=== PATIENT | female | born 1950 | race Caucasian/White ===

== ENCOUNTER → 2019-01-07 | Outpatient (CLI) | payer MEDICARE, OTHER ==
--- NOTE | 2019-01-07 16:35 | Diagnostic Imaging Report ---
INDICATION: Left knee pain. FINDINGS: Three views of the left knee show slight narrowing of the medial tibiofemoral joint space. The medial joint space measures 4 mm in thickness whereas the lateral compartment measures 5 mm in thickness. There are small osteophytes at the margins of the articular surfaces. There are small osteophytes at the margins of the patellofemoral joint. IMPRESSION: Mild degenerative changes in the medial, tibiofemoral, and patellofemoral joint spaces. Dictated by: Dictated on workstation # [id number]
== END ==
LOC: RAD FS 15:25
PROVIDERS: ATTEND Nurse Practitioner Family
DX: M17.12 Unilateral primary osteoarthritis, left knee (principal)
CPT/HCPCS: 73562

== ENCOUNTER → 2019-10-06 | Outpatient (CLI) | payer MEDICARE, OTHER ==
--- NOTE | 2019-10-06 11:06 | Diagnostic Imaging Report ---
INDICATION: Back pain AP and lateral views of the lumbar spine are obtained The lumbar vertebrae are normal in height with no compression deformity. There is disc space narrowing of mild to moderate severity at L5-S1, L4-L5, and L3-L4. There is slight retrolisthesis of L3-L4 by about 2 to 3 mm. There is diffuse facet degenerative change from L3 through S1. IMPRESSION: Degenerative findings in the lumbar spine as listed above. Slight retrolisthesis of L3-L4. No acute bony abnormality. Dictated by: Dictated on workstation # [id number]
== END ==
LOC: RAD FS 10:45
PROVIDERS: ATTEND Nurse Practitioner Family
DX: M51.17 Intervertebral disc disorders with radiculopathy, lumbosacral region (principal); M47.817 Spondylosis without myelopathy or radiculopathy, lumbosacral region
CPT/HCPCS: 72100

== ENCOUNTER 2020-05-15 15:12 | Emergency (ER) | payer MEDICARE, OTHER ==
[~2020-05-15] VITALS: Ht 154.9 cm; Wt 98.4 kg
[2020-05-15 15:51] LABS: HEMATOCRIT 31 % (35-52); HEMOGLOBIN 10.2 G/DL (11.5-16.0); MEAN CORPUSCULAR HEMOGLOBIN 27 PG (25-34); MEAN CORPUSCULAR VOLUME 82 FL (80-99); WHITE BLOOD COUNT 8.7 10^3/uL (4.3-11.0)
[2020-05-15 15:52] LABS: BASOPHILS % (AUTO) 1 % (0-10); EOSINOPHILS # (AUTO) 0.1 10^3/uL (0.0-0.3); EOSINOPHILS % (AUTO) 2 % (0-10); LYMPHOCYTES # (AUTO) 0.8 X 10^3 (1.0-4.0); LYMPHOCYTES % (AUTO) 9 % (12-44); MEAN CORPUSCULAR HGB CONC 33 G/DL (32-36); MEAN PLATELET VOLUME 9.3 FL (7.4-10.4); MONOCYTES # (AUTO) 0.6 X 10^3 (0.0-1.0); MONOCYTES % (AUTO) 7 % (0-12); NEUTROPHILS % (AUTO) 80 % (42-75); PLATELET COUNT 386 10^3/uL (130-400)
--- NOTE | 2020-05-15 16:17 | Diagnostic Imaging Report ---
EXAMINATION: Left knee radiographs, 2 views. COMPARISON: January 07, 2019. HISTORY: 69-year-old female, swelling and redness. FINDINGS: There is a total left knee prosthesis. The hardware appears intact. There is no periprosthetic lucency. There is no cortical or aggressive bone destruction. There is no identified acute fracture. There is no large knee joint effusion. There is no identified unexpected radiopaque foreign body. IMPRESSION: Intact total left knee prosthesis without apparent complication. Dictated by: Dictated on workstation # [id number]
[2020-05-15 16:20] LABS: ALANINE AMINOTRANSFERASE 11 U/L (0-55); ALBUMIN 3.6 GM/DL (3.2-4.5); ALKALINE PHOSPHATASE 106 U/L (40-136); BUN/CREATININE RATIO 30; CALCIUM 9.2 MG/DL (8.5-10.1); CARBON DIOXIDE 25 MMOL/L (21-32); CHLORIDE 100 MMOL/L (98-107); GFR ESTIMATED > 60; GLUCOSE 177 MG/DL (70-105); SODIUM 137 MMOL/L (135-145); TOTAL PROTEIN 6.5 GM/DL (6.4-8.2)
[2020-05-15 17:25] VITALS: BP 144/61
[2020-05-15] MEDS ORDERED: ENOXAPARIN 80 MG/0.8 ML (LOVENOX) SYR SC ONE (17:30)
--- NOTE | 2020-05-16 07:03 | ED General ---
General Chief Complaint: Lower Extremity Stated Complaint: LEFT LEG SWOLLEN,HOT TO TOUCH: SURGERY ON 05/09 Nursing Triage Note: PT ARRIVED BY PRIVATE VEHICLE WITH CHIEF COMPLAINT OF LEFT KNEE/LEG SWELLING. PT WAS ALERT, ORIENTED X 4 AND WHEELED TO ROOM 4 WHERE HER VITAL SIGNS WERE TAKEN. DOPPLER WAS USED TO FIND DORSALIS PEDIS AND POSTERIOR TIBIALIS. PT HAD SURGERY AT [facility] STATES ON 05/09 AND LEFT ON 05/12. PT HAD LAST DRESSING CHANGE ON 05/10. THERE IS A DRAINAGE SPOT ON HER DRESSING. PT HAS SEVERE SWELLING IN LEFT LEG AND BRUISING. PT STATED SHE TAKES A BABY ASPIRIN 81 MG A DAY AND OXYCODONE EVERY 4 HOURS FOR PAIN. PT HAS BEEN TRYING TO WALK ON LEG AND GET UP AND DOWN, BUT IN A LOT OF PAIN. PT IS SUPPOSED TO DO PHYSICIAL THERAPY ON SATURDAY. PT STATED IT IS WARM TO THE TOUCH. PT STATED SHE DOES NOT LIKE HYDROCODENE. Nursing Sepsis Screen: No Definite Risk Source of Information: Patient Exam Limitations: No Limitations History of Present Illness Date Seen by Provider: May 16, 2020 Time Seen by Provider: 17:30 Initial Comments Patient is a 69-year-old female who is 6 days status post left knee replacement presents with increased left leg pain swelling left knee. Patient reports increased pain with ambulation and movement. Denies falls or injuries. No fevers chills, nausea vomiting or sweats. Denies increased drainage from bandage. Patient states she was walking on the leg for 3 hours last evening prior to leg hurting today. No chest pain shortness of breath. No other symptoms or complaints. Patient is not currently anticoagulated. Timing/Duration: 12-24 Hours Severity: Moderate Modifying Factors: improves with Movement Associated Systoms: Other Allergies and Home Medications Allergies Coded Allergies: hydrocodone (Verified Allergy, Unknown, 05/15/20) Patient Home Medication List Home Medication List Reviewed: Yes Review of Systems Review of Systems Constitutional: see HPI EENTM: see HPI Respiratory: see HPI Cardiovascular: see HPI Gastrointestinal: see HPI Genitourinary: see HPI Musculoskeletal: see HPI Skin: see HPI Psychiatric/Neurological: See HPI Hematologic/Lymphatic: See HPI Immunological/Allergic: see HPI All Other Systems Reviewed Negative Unless Noted: Yes Past Ndfbuhd-Amaxlo-Iiqbqs Hx Past Med/Social Hx: Reviewed Nursing Past Med/Soc Hx Patient Social History Recent Foreign Travel: No Contact w/Someone Who Travel: No Recent Infectious Disease Expo: No Recent Hopitalizations: Yes (LEFT KNEE REPLACEMENT) Physical Abuse: No Sexual Abuse: No Mistreated: No Fear: No Seasonal Allergies Seasonal Allergies: No Past Medical History Surgeries: Yes (BILATERAL KNEE REPLACEMENT) Adenoidectomy, Gallbladder, Joint Replacement, Tonsillectomy Respiratory: No Cardiac: Yes Hypertension Neurological: No Genitourinary: No Gastrointestinal: No Musculoskeletal: Yes (OSTEOARTHRITIS, BILAT KNEE REPLACMENT) Arthritis Endocrine: No (ON BOARDER FOR DM) HEENT: No Cancer: No Psychosocial: No Blood Disorders: No Physical Exam Vital Signs Vital Signs - First Documented 05/15/20 15:20 Temp 37.2 Pulse 100 Resp 20 B/P (MAP) 150/77 (101) Pulse Ox 98 O2 Delivery Room Air Capillary Refill : Less Than 3 Seconds Height, Weight, BMI Height: '" Weight: lbs. oz. kg; 41.00 BMI Method: General Appearance: Anxious, Mild Distress Eyes: Bilateral Eye Normal Inspection HEENT: PERRL/EOMI, Pharynx Normal Neck: Full Range of Motion, Normal Inspection, Non Tender Extremity: Swelling (midline incision left leg/knee, wound clean dry and intact. The joint is not hot or is excessively painful with range of motion. Extensive old bruising for a anterior leg. Pulses present. Calf does not feel tense), Other Neurologic/Psychiatric: Oriented x3, No Motor/Sensory Deficits Focused Exam Sepsis Stage: Ruled Out Progress/Results/Core Measures Suspected Sepsis Recent Fever Within 48 Hours: No Infection Criteria Present: Suspected New Infection New/Unexplained Altered Menta: No Sepsis Screen: No Definite Risk SIRS Temperature: Pulse: 92 Respiratory Rate: 18 Laboratory Tests 05/15/20 15:40: White Blood Count 8.7 Blood Pressure 144 /61 Mean: 101 Laboratory Tests 05/15/20 15:40: Creatinine 0.50L, Platelet Count 386, Total Bilirubin 1.0 Results/Orders Lab Results Laboratory Tests Test 05/15/20 15:40 Range/Units White Blood Count 8.7 4.3-11.0 10^3/uL Red Blood Count 3.78 L 4.35-5.85 10^6/uL Hemoglobin 10.2 L 11.5-16.0 G/DL Hematocrit 31 L 35-52 % Mean Corpuscular Volume 82 80-99 FL Mean Corpuscular Hemoglobin 27 25-34 PG Mean Corpuscular Hemoglobin Concent 33 32-36 G/DL Red Cell Distribution Width 14.1 10.0-14.5 % Platelet Count 386 130-400 10^3/uL Mean Platelet Volume 9.3 7.4-10.4 FL Immature Granulocyte % (Auto) 2 % Neutrophils (%) (Auto) 80 H 42-75 % Lymphocytes (%) (Auto) 9 L 12-44 % Monocytes (%) (Auto) 7 0-12 % Eosinophils (%) (Auto) 2 0-10 % Basophils (%) (Auto) 1 0-10 % Neutrophils # (Auto) 7.0 1.8-7.8 X 10^3 Lymphocytes # (Auto) 0.8 L 1.0-4.0 X 10^3 Monocytes # (Auto) 0.6 0.0-1.0 X 10^3 Eosinophils # (Auto) 0.1 0.0-0.3 10^3/uL Basophils # (Auto) 0.0 0.0-0.1 10^3/uL Immature Granulocyte # (Auto) 0.1 0.0-0.1 10^3/uL Sodium Level 137 135-145 MMOL/L Potassium Level 4.0 3.6-5.0 MMOL/L Chloride Level 100 98-107 MMOL/L Carbon Dioxide Level 25 21-32 MMOL/L Anion Gap 12 5-14 MMOL/L Blood Urea Nitrogen 15 7-18 MG/DL Creatinine 0.50 L 0.60-1.30 MG/DL Estimat Glomerular Filtration Rate > 60 BUN/Creatinine Ratio 30 Glucose Level 177 H 70-105 MG/DL Calcium Level 9.2 8.5-10.1 MG/DL Corrected Calcium 9.5 8.5-10.1 MG/DL Total Bilirubin 1.0 0.1-1.0 MG/DL Aspartate Amino Transf (AST/SGOT) 11 5-34 U/L Alanine Aminotransferase (ALT/SGPT) 11 0-55 U/L Alkaline Phosphatase 106 40-136 U/L C-Reactive Protein 8.39 H <0.50 MG/DL Total Protein 6.5 6.4-8.2 GM/DL Albumin 3.6 3.2-4.5 GM/DL Nanci Sullivan - KARLO BRUCE DO Cbc With Automated Diff (12/27/20 15:34) Comprehensive Metabolic Panel (05/15/20 15:34) Crp Fs (05/15/20 15:34) Knee 2 View Left (05/15/20 15:37) Enoxaparin Injection (Lovenox Injection) (05/15/20 17:30) Vital Signs/I&O Capillary Refill : Less Than 3 Seconds Blood Pressure Mean: 101 Departure Communication (Admissions) Left knee: Soft tissue swelling only. Labyrinthine imaging reviewed. Symptoms most consistent with increased pain and swelling secondary to aggressive use. Infection considered but not clinically evident at this point. Arthrocentesis not currently indicated. Case reviewed with orthopedic provider who will see in clinic in 2 days. Lovenox given with order for CV ultrasound to performed next day. Return precautions reviewed. Impression Primary Impression: Postoperative pain of extremity Disposition: 01 HOME, SELF-CARE Condition: Stable Departure-Patient Inst. Decision time for Depature: 17:15 Add. Discharge Instructions: Please follow up with [facility] tomorrow to arrange for outpatient US of leg and cotnact your orthopaeidic provider for re-evaluation in the next one two days. All discharge instructions reviewed with patient and/or family. Voiced understanding. KARLO BRUCE DO May 16, 2020 07:03
== END 2020-05-15 17:25 | disposition home or self-care (01) ==
LOC: EDUNIT# 15:12 → ER FS 15:14
DX: G89.18 Other acute postprocedural pain (principal); F41.9 Anxiety disorder, unspecified; Z88.5 Allergy status to narcotic agent
CPT/HCPCS: 36415; 73560; 80053; 85025; 86141

== ENCOUNTER → 2021-01-09 | Outpatient (CLI) | payer MEDICARE, OTHER ==
[~2021-01-09] VITALS: Ht 154 cm; Wt 220.0 kg
[~2021-01-09] MED LIST: ACETAMINOPHEN 500 MG TAB (TYLENOL) PO PRN; CASIRIVIMAB/IMDEVIMAB 1,200 MG in NS (IVPB) 250 ML IV ONE; EPINEPHrine INJECTION 1 MG/ML AMP IM PRN; ONDANSETRON 4 MG/2 ML (SDV) Z0FRAN IV PRN; diphenhydrAMINE 50 MG/ML INJ (BENADRYL) IV PRN
[2021-01-09 12:17] VITALS: BP 147/57
[2021-01-09 13:46] VITALS: BP 139/65
== END ==
LOC: INFUSION 12:08
PROVIDERS: ATTEND Nurse Practitioner Family
DX: Z23 Encounter for immunization (principal); U07.1 COVID-19

== ENCOUNTER → 2021-08-01 | Outpatient (CLI) | payer MEDICARE, OTHER ==
--- NOTE | 2021-08-01 20:00 | Diagnostic Imaging Report ---
HISTORY: Pain in the right hip. EXAMINATION: Right hip from 08/01/2021. FINDINGS: Single view of the pelvis with two views of the right hip. There is a small linear density adjacent to the superolateral aspect of the right acetabulum which could represent an os acetabuli. A small fracture fragment is less likely but not excluded. The remaining osseous structures are intact. Mild narrowing is seen in both hips. IMPRESSION: 1. Age-indeterminate density adjacent to the superolateral right acetabulum. Correlate with symptoms. Dictated by: Dictated on workstation # [id number]
== END ==
LOC: RAD FS 14:27
PROVIDERS: ATTEND Nurse Practitioner Family
DX: M25.851 Other specified joint disorders, right hip (principal)
CPT/HCPCS: 73502

== ENCOUNTER 2021-08-13 21:00 | Emergency (ER) | payer MEDICARE, OTHER ==
--- NOTE | 2021-08-13 21:43 | ED General ---
General Chief Complaint: Trauma-Non Activation Stated Complaint: HEAD INJURY Nursing Triage Note: Pt states she was carrying groceries up her steps and fell backward, hitting her head on the concrete. Pt denies loc and is alert and oriented on arrival History of Present Illness Date Seen by Provider: Aug 13, 2021 Time Seen by Provider: 21:15 Initial Comments 70-year-old female is here with complaints of swelling to her scalp after she had a fall today. Patient had a fall backwards off her front porch steps, 2 in number. She hit the back of her head on the ground but did not have LOC. Patient was carrying a water jug to her porch and the jug fell towards her causing her to fall backwards. Denies dizziness, headache, blurry vision, chest pain, palpitations. Allergies and Home Medications Allergies Coded Allergies: hydrocodone (Verified Allergy, Unknown, 05/15/20) Patient Home Medication List Home Medication List Reviewed: Yes Review of Systems Review of Systems Constitutional: no symptoms reported EENTM: other (scalp swelling) Respiratory: no symptoms reported Cardiovascular: no symptoms reported Gastrointestinal: no symptoms reported Genitourinary: no symptoms reported Musculoskeletal: no symptoms reported Skin: no symptoms reported Psychiatric/Neurological: No Symptoms Reported Hematologic/Lymphatic: No Symptoms Reported Immunological/Allergic: no symptoms reported Past Zvfdpme-Bbxbql-Jbffjn Hx Patient Social History Tobacco Use?: No Use of E-Cig and/or Vaping dev: No Substance use?: No Alcohol Use?: No Pt feels they are or have been: No Seasonal Allergies Seasonal Allergies: No Past Medical History Surgeries: Yes (BILATERAL KNEE REPLACEMENT) Adenoidectomy, Gallbladder, Joint Replacement, Tonsillectomy Respiratory: No Cardiac: Yes Hypertension Neurological: No Genitourinary: No Gastrointestinal: No Musculoskeletal: Yes (OSTEOARTHRITIS, BILAT KNEE REPLACMENT) Arthritis Endocrine: No (ON BOARDER FOR DM) HEENT: No Cancer: No Psychosocial: No Blood Disorders: No Physical Exam Vital Signs Vital Signs - First Documented 08/13/21 21:06 Temp 36.7 Pulse 80 Resp 18 B/P (MAP) 168/119 (135) Pulse Ox 96 O2 Delivery Room Air Capillary Refill : Less Than 3 Seconds Height, Weight, BMI Height: '" Weight: lbs. oz. kg; 41.00 BMI Method: General Appearance: No Apparent Distress HEENT: PERRL/EOMI, TMs Normal Neck: Full Range of Motion, Normal Inspection, Non Tender, Supple Extremity: Normal Inspection, Normal Range of Motion, Non Tender Neurologic/Psychiatric: Alert, Oriented x3, No Motor/Sensory Deficits, Normal Mood/Affect, touch up worker II-XII Norm as Tested Skin: Normal Color Progress/Results/Core Measures Suspected Sepsis SIRS Temperature: Pulse: 80 Respiratory Rate: 18 Blood Pressure 168 /119 Mean: 135 Results/Orders My Orders Orders - BELEN SUNSHINE MD Ct Head/Cervical Spine Wo (08/13/21 21:11) Vital Signs/I&O 08/13/21 21:06 Temp 36.7 Pulse 80 Resp 18 B/P (MAP) 168/119 (135) Pulse Ox 96 O2 Delivery Room Air Capillary Refill : Less Than 3 Seconds Blood Pressure Mean: 135 Progress Note : Progress Note 1. LEFT PARIETAL SCALP HEMATOMA: - CT HEAD & C-SPINE: left parietal scalp hematoma - F/u with PCP - Concussion precautions discussed. No concussion at this time. -The patient was seen in the ED, and treated appropriately to presentation at a specific point in time. Patient is informed that there is a possibility that disease and illness can evolve and change in acuity rapidly or slowly after patient is discharged from the ER. Precautionary advice given to the patient for immediate return to ER if symptoms worsen or do not resolve, and to seek emergen cy care sooner rather than later. Pt also advised on the importance of PCP follow up and compliance with management and follow up plan. Pt verbally expressed understanding. Diagnostic Imaging Diagonstic Imaging: CT Plain Films/CT/US/NM/MRI: c-spine, head Comments [facility], [place] NAME: STELLA VILLAGRAN [facility] REC#: [id number] PT STATUS: REG ER : 1950 PHYSICIAN: BELEN SUNSHINE MD ADMIT DATE: 08/13/21/ER FS Signed Date of Exam:08/13/21 CT HEAD/CERVICAL SPINE WO PROCEDURE: CT head and CT cervical spine without contrast. TECHNIQUE: Multiple contiguous axial images were obtained through the brain and cervical spine without the use of intravenous contrast. Sagittal and coronal reformations through the cervical spine were then performed. Auto Exposure Controls were utilized during the CT exam to meet ALARA standards for radiation dose reduction. INDICATION: Fall. Head and neck pain. COMPARISON: None. FINDINGS: CT HEAD: No large acute territorial ischemia, mass or hemorrhage. No midline shift or mass effect. Scattered areas of decreased attenuation are seen in the periventricular and subcortical white matter. The ventricles, cortical sulci and basilar cisterns are patent and unremarkable. A scalp contusion is seen overlying the left parietal region. The calvarium is intact. The visualized paranasal sinuses are clear. CT CERVICAL SPINE: No acute fracture or dislocation is seen in the cervical spine. There is reversal of the normal lordotic curvature of the cervical spine centered at the C5-C6 level. No focal osseous lesion. Vertebral body heights are well maintained. The craniocervical junction is well maintained. Mild degenerative changes are seen in the cervical spine with disc osteophyte complexes and uncovertebral arthropathy. Soft tissues of the neck are unremarkable. The included lung apices are clear. IMPRESSION: 1. No hemorrhage or focal intra-axial mass. No CT evidence of large acute territorial ischemia. 2. No acute fracture or dislocation in the cervical spine. 3. Scalp contusion overlying the left parietal region. No associated calvarial fracture. 4. Scattered chronic microvascular disease in the periventricular and subcortical white matter. Departure Impression Primary Impression: Left parietal scalp hematoma Qualified Codes: S00.03XA - Contusion of scalp, initial encounter Disposition: 01 HOME, SELF-CARE Condition: Stable Departure-Patient Inst. Referrals: TEMI JERONIMO APRN (PCP) Primary Care Physician [facility] (Family) Primary Care Physician Patient Instructions: Contusion (DC), Concussion, Adult (DC) Add. Discharge Instructions: - F/u with PCP - Concussion precautions discussed. No concussion at this time. -The patient was seen in the ED, and treated appropriately to presentation at a specific point in time. Patient is informed that there is a possibility that disease and illness can evolve and change in acuity rapidly or slowly after patient is discharged from the ER. Precautionary advice given to the patient for immediate return to ER if symptoms worsen or do not resolve, and to seek emergency care sooner rather than later. Pt also advised on the importance of PCP follow up and compliance with management and follow up plan. Pt verbally expressed understanding. All discharge instructions reviewed with patient and/or family. Voiced understanding. BELEN SUNSHINE MD Aug 13, 2021 21:43
--- NOTE | 2021-08-13 21:47 | Diagnostic Imaging Report ---
PROCEDURE: CT head and CT cervical spine without contrast. TECHNIQUE: Multiple contiguous axial images were obtained through the brain and cervical spine without the use of intravenous contrast. Sagittal and coronal reformations through the cervical spine were then performed. Auto Exposure Controls were utilized during the CT exam to meet ALARA standards for radiation dose reduction. INDICATION: Fall. Head and neck pain. COMPARISON: None. FINDINGS: CT HEAD: No large acute territorial ischemia, mass or hemorrhage. No midline shift or mass effect. Scattered areas of decreased attenuation are seen in the periventricular and subcortical white matter. The ventricles, cortical sulci and basilar cisterns are patent and unremarkable. A scalp contusion is seen overlying the left parietal region. The calvarium is intact. The visualized paranasal sinuses are clear. CT CERVICAL SPINE: No acute fracture or dislocation is seen in the cervical spine. There is reversal of the normal lordotic curvature of the cervical spine centered at the C5-C6 level. No focal osseous lesion. Vertebral body heights are well maintained. The craniocervical junction is well maintained. Mild degenerative changes are seen in the cervical spine with disc osteophyte complexes and uncovertebral arthropathy. Soft tissues of the neck are unremarkable. The included lung apices are clear. IMPRESSION: 1. No hemorrhage or focal intra-axial mass. No CT evidence of large acute territorial ischemia. 2. No acute fracture or dislocation in the cervical spine. 3. Scalp contusion overlying the left parietal region. No associated calvarial fracture. 4. Scattered chronic microvascular disease in the periventricular and subcortical white matter. Dictated by: Dictated on workstation # [id number]
[2021-08-13 22:22] VITALS: BP 162/95
== END 2021-08-13 22:25 | disposition home or self-care (01) ==
LOC: EDUNIT# 21:00 → ER FS 21:03
DX: S00.03XA Contusion of scalp, initial encounter (principal); W22.8XXA Striking against or struck by other objects, initial encounter
CPT/HCPCS: 70450; 72125

== ENCOUNTER 2021-11-13 11:55 | Emergency (ER) | payer MEDICARE, OTHER ==
[~2021-11-13] VITALS: Ht 175 cm; Wt 63.0 kg
[2021-11-13 12:32] VITALS: BP 131/72
--- NOTE | 2021-11-13 13:11 | ED Respiratory ---
General Chief Complaint: COVID19 Suspect/Confirmed Stated Complaint: COVID POSITIVE Nursing Triage Note: Patient has presented to ER with cc of a positive home Covid test. Patient reports that she started to feel sick yesterday. She complains of cough, congestion, and body aches. She is concerned about the positive test and came to ER for evaluation. History of Present Illness Date Seen by Provider: Nov 13, 2021 Time Seen by Provider: 12:56 Initial Comments 70-year-old female here with complaints of positive COVID home test. Son is in the room and had the same thing. She is here to get further tested. Having some cough shortness of breath. No fever or chills. Symptoms started yesterday Timing/Duration: yesterday Allergies and Home Medications Allergies Coded Allergies: hydrocodone (Verified Allergy, Unknown, 05/15/20) Patient Home Medication List Home Medication List Reviewed: Yes Molnupiravir (Molnupiravir (Eua)) 200 Mg Capsule, 800 MG PO BID Prescribed by: Ke Rodriguez on 11/13/21 1620 Review of Systems Review of Systems Constitutional: see HPI Past Mxenteh-Ndjalt-Wrazla Hx Patient Social History Tobacco Use?: No Use of E-Cig and/or Vaping dev: No Substance use?: No Alcohol Use?: No Seasonal Allergies Seasonal Allergies: No Past Medical History Surgeries: Yes (BILATERAL KNEE REPLACEMENT) Adenoidectomy, Gallbladder, Joint Replacement, Tonsillectomy Respiratory: No Cardiac: Yes Hypertension Neurological: No Genitourinary: No Gastrointestinal: No Musculoskeletal: Yes (OSTEOARTHRITIS, BILAT KNEE REPLACMENT) Arthritis Endocrine: No (ON BOARDER FOR DM) HEENT: No Cancer: No Psychosocial: No Blood Disorders: No Physical Exam Vital Signs - First Documented 11/13/21 12:32 Temp 36.4 Pulse 60 Resp 16 B/P (MAP) 131/72 (91) Pulse Ox 98 O2 Delivery Room Air Capillary Refill : Height: '" Weight: lbs. oz. kg; 20.00 BMI Method: General Appearance: WD/WN, no apparent distress HEENT: PERRL/EOMI, pharynx normal Neck: full range of motion, supple Respiratory: lungs clear, normal breath sounds; No crackles, No rales, No rhonchi Cardiovascular: regular rate, rhythm, no edema Neurologic/Psychiatric: alert, normal mood/affect Progress/Results/Core Measures Suspected Sepsis SIRS Temperature: Pulse: 60 Respiratory Rate: 16 Blood Pressure 131 /72 Mean: 91 Results/Orders Lab Results Laboratory Tests Test 11/13/21 13:05 Range/Units Influenza Type A (RT-PCR) Not Detected Not Detecte Influenza Type B (RT-PCR) Not Detected Not Detecte SARS-CoV-2 RNA (RT-PCR) Detected H Not Detecte My Orders Orders - KE RODRIGUEZ MD Covid 19 Inhouse Test (11/13/21 13:01) Influenza A And B By Pcr (11/13/21 13:01) Isolation Central Supply Req (11/13/21 13:01) Vital Signs/I&O 11/13/21 12:32 Temp 36.4 Pulse 60 Resp 16 B/P (MAP) 131/72 (91) Pulse Ox 98 O2 Delivery Room Air Capillary Refill : Blood Pressure Mean: 91 Departure Impression Primary Impression: COVID-19 Disposition: 01 HOME, SELF-CARE Condition: Stable Departure-Patient Inst. Referrals: TEMI JERONIMO APRN (PCP) Primary Care Physician [facility] (Family) Primary Care Physician Patient Instructions: COVID-19 Home Care/Discharge Scripts Molnupiravir (Molnupiravir (Eua)) 200 Mg Capsule 800 MG PO BID for 5 Days, #40 CAP 0 Refills Prov: KE RODRIGUEZ MD 11/13/21 KE RODRIGUEZ MD Nov 13, 2021 13:11
[2021-11-13] MEDS ORDERED: MOLN200C PO (16:20)
== END 2021-11-13 17:23 | disposition home or self-care (01) ==
LOC: EDUNIT# 11:55 → ER FS 11:58
DX: U07.1 COVID-19 (principal)
CPT/HCPCS: 87636; 99283

== ENCOUNTER 2021-11-24 16:49 | Emergency (ER) | payer MEDICARE, OTHER ==
[~2021-11-24] VITALS: Ht 152.4 cm; Wt 63.0 kg
[~2021-11-24 16:49] MED LIST changes: -ACETAMINOPHEN 500 MG TAB (TYLENOL) PO PRN; -CASIRIVIMAB/IMDEVIMAB 1,200 MG in NS (IVPB) 250 ML IV ONE; -EPINEPHrine INJECTION 1 MG/ML AMP IM PRN; +MOLN200C PO; -ONDANSETRON 4 MG/2 ML (SDV) Z0FRAN IV PRN; -diphenhydrAMINE 50 MG/ML INJ (BENADRYL) IV PRN
--- NOTE | 2021-11-24 17:25 | ED Cough/URI ---
General Chief Complaint: Cough/Cold/Flu Symptoms Stated Complaint: COUGH Nursing Triage Note: Patient presents to the ED with c/o persistent cough. States that she was COVID + 11/13/2021 and finished antiviral medication 11/18/2021. Reports persistent productive cough with no improvement since finishing antiviral medication. Was seen at urgent care and sent to the ED for further evaluation. Source: patient Exam Limitations: no limitations History of Present Illness Date Seen by Provider: Nov 24, 2021 Time Seen by Provider: 17:00 Initial Comments Patient is a 70-year-old female who is 2 weeks post COVID diagnosis who presents with persistent nasal congestion rhinorrhea postnasal drip and cough. No chest pain palpitations, shortness of breath wheezing, leg pain or swelling. No history DVT or PE. No fever chills or sweats. Patient was seen at [facility] with O2 sats greater than 94% referred to the ED for additional evaluation. Timing/Duration: yesterday Severity/Quality: other Prior Episodes/Possible Cause: other Modifying Factors: Improves With Other Associated Symptoms: other Allergies and Home Medications Allergies Coded Allergies: hydrocodone (Verified Allergy, Unknown, 05/15/20) Patient Home Medication List Home Medication List Reviewed: Yes Molnupiravir (Molnupiravir (Eua)) 200 Mg Capsule, 800 MG PO BID Prescribed by: Cate Rodriguez on 11/13/21 1620 Review of Systems Review of Systems Constitutional: see HPI EENTM: see HPI Respiratory: see HPI Cardiovascular: see HPI Gastrointestinal: see HPI Musculoskeletal: see HPI Skin: see HPI Psychiatric/Neurological: See HPI Hematologic/Lymphatic: See HPI Immunological/Allergic: see HPI All Other Systems Reviewed Negative Unless Noted: Yes Past Sjbflke-Ogudnc-Szvbsl Hx Patient Social History Tobacco Use?: No Substance use?: No Alcohol Use?: No Pt feels they are or have been: No Immunizations Up To Date First/Initial COVID19 Vaccinat: Yes Second COVID19 Vaccination Calderon: Yes 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: [employer] Seasonal Allergies Seasonal Allergies: No Past Medical History Surgery/Hospitalization HX: HTN; High Cholesterol; Recent COVID 11/13/2021; Hysterectomy; Parkinson; Chronic joint pain; Asthma Surgeries: Yes (BILATERAL KNEE REPLACEMENT) Adenoidectomy, Gallbladder, Joint Replacement, Tonsillectomy Respiratory: No Cardiac: Yes Hypertension Neurological: No Genitourinary: No Gastrointestinal: No Musculoskeletal: Yes (OSTEOARTHRITIS, BILAT KNEE REPLACMENT) Arthritis Endocrine: No (ON BOARDER FOR DM) HEENT: No Cancer: No Psychosocial: No Blood Disorders: No Physical Exam Vital Signs - First Documented 11/24/21 16:54 Temp 37.0 Pulse 71 Resp 20 B/P (MAP) 176/77 (110) Pulse Ox 95 O2 Delivery Room Air Capillary Refill : Less Than 3 Seconds Height: '" Weight: lbs. oz. kg; 27.00 BMI Method: General Appearance: WD/WN, no apparent distress Eyes: Bilateral Eye Normal Inspection, Bilateral Eye PERRL HEENT: PERRL/EOMI, normal ENT inspection, other (rhinorrhea, nasal congestion) Neck: full range of motion Respiratory: chest non-tender, lungs clear, normal breath sounds Cardiovascular: normal peripheral pulses, regular rate, rhythm Extremities: non-tender, normal inspection Neurologic/Psychiatric: alert, oriented x 3 Focused Exam Sepsis Stage: Ruled Out Progress/Results/Core Measures Suspected Sepsis SIRS Temperature: Pulse: 71 Respiratory Rate: 20 Blood Pressure 176 /77 Mean: 110 Results/Orders Vital Signs/I&O 11/24/21 16:54 Temp 37.0 Pulse 71 Resp 20 B/P (MAP) 176/77 (110) Pulse Ox 95 O2 Delivery Room Air Capillary Refill : Less Than 3 Seconds Blood Pressure Mean: 110 Departure Communication (Admissions) Patient with cough related symptoms. Vital signs are stable with O2 sats greater than 97%. No chest pain, shortness of breath wheezing or constitutional symptoms. I am comfortable treating the patient clinically with PCP follow-up.. Impression Primary Impression: Acute bronchitis due to 2019 novel coronavirus Disposition: HOME, SELF-CARE Condition: Stable Admissions Decision to Admit/Date: Nov 24, 2021 Time/Decision to Admit Time: 17:25 Departure-Patient Inst. Decision time for Depature: 17:25 Referrals: TEMI JERONIMO APRN (PCP) Primary Care Physician [facility] (Family) Primary Care Physician Patient Instructions: Acute Bronchitis Add. Discharge Instructions: Your symptoms are consistent with acute bronchitis due to COVID virus. Please take newly prescribed medication as directed follow-up with your PCP as needed. Return to the ED if new or worsening symptoms. All discharge instructions reviewed with patient and/or family. Voiced understanding. Scripts Benzonatate (TESSALON PERLES) 100 Mg Capsule 200 MG PO BID, #30 CAP Prov: KARLO BRUCE DO 11/24/21 Albuterol Sulfate (Proventil Hfa) 6.7 Gm Hfa.aer.ad 2 PUFF INH Q6H for SHORTNESS OF BREATH, #1 EACH Prov: KARLO BRUCE DO 11/24/21 Guaifenesin (Mucinex) 1,200 Mg Tab.er.12h 1200 MG PO BID, #30 TAB Prov: KARLO BRUCE DO 11/24/21 KARLO BRUCE DO Nov 24, 2021 17:25
[2021-11-24] MEDS ORDERED: BENZ100C18 PO (17:28)
[2021-11-24] MEDS ORDERED: RT-ALBUINH INH (17:28)
[2021-11-24] MEDS ORDERED: GUAI120013 PO (17:28)
[2021-11-24 17:30] VITALS: BP 166/79
== END 2021-11-24 17:30 | disposition home or self-care (01) ==
LOC: EDUNIT# 16:49 → ER FS 16:50
DX: U07.1 COVID-19 (principal); J20.8 Acute bronchitis due to other specified organisms; Z73.0 Burn-out
CPT/HCPCS: 99282

== ENCOUNTER → 2022-01-25 | Outpatient (CLI) | payer MEDICARE, OTHER ==
[~2022-01-25] MED LIST changes: +BENZ100C18 PO; +GUAI120013 PO; +RT-ALBUINH INH
--- NOTE | 2022-01-25 17:05 | Diagnostic Imaging Report ---
EXAMINATION: Pelvis and right hip radiograph EXAM DATE: 01/25/2022 2:03 PM COMPARISON: 08/01/2021 HISTORY: RIGHT HIP PAIN; STATUS POST FALL TECHNIQUE: 3 views FINDINGS: There is no acute fracture, dislocation, or destructive osseous process. Stable mild joint space narrowing. The joint spaces are otherwise normal. The soft tissues are normal. IMPRESSION: 1. No acute osseous abnormality. Dictated on workstation # [id number]
== END ==
LOC: RAD FS 13:44
PROVIDERS: ATTEND Nurse Practitioner Family
DX: M25.551 Pain in right hip (principal); Z91.81 History of falling
CPT/HCPCS: 73502